=== PATIENT | male | born 1990 | race Two or more races ===

== ENCOUNTER 2025-02-10 18:03 | Inpatient (IN) | payer OTHER ==
[2025-02-10 19:51] LABS: COVID AG,FIA SOURCE NASAL SWAB
[2025-02-10 19:52] LABS: PLATELET COUNT (AUTO) 337 K/uL (150-450); RED BLOOD CELL COUNT(AUTO) 4.40 MIL/uL (4.50-5.90); RED CELL DISTRIBUTION WIDTH 15.2 % (11.5-14.5); WHITE BLOOD COUNT (AUTO) 9.1 K/uL (4.5-11.0)
[2025-02-10 19:55] LABS: APPEARANCE,URINE CLEAR (CLEAR); GLUCOSE, URINE (UA) NEGATIVE (NEGATIVE); LEUKOCYTE ESTERASE ,URINE NEGATIVE (NEGATIVE); NITRATE,URINE NEGATIVE (NEGATIVE); OCCULT BLOOD,URINE NEGATIVE (NEGATIVE); PH,URINE DRUG SCREEN 6.0 (5.0-8.0); SPECIFIC GRAVITIY, URINE 1.013 (1.003-1.030)
[2025-02-10 20:01] LABS: AMPHET/METH SCREEN,URINE NEGATIVE (NEGATIVE); BARBITURATE SCREEN, URINE NEGATIVE (NEGATIVE); CANNABINOID SCREEN,URINE NEGATIVE (NEGATIVE); COCAINE SCREEN,URINE NEGATIVE (NEGATIVE); METHADONE SCREEN, URINE NEGATIVE (NEGATIVE)
[2025-02-10 20:08] LABS: CALCIUM, TOTAL 8.7 mg/dL (8.8-10.5); CREATININE 0.78 mg/dL (0.60-1.30); GLOMERULAR FILTR. RATE CALC > 60 mL/min (>60); GLUCOSE,RANDOM 111 mg/dL (70-110); SODIUM SERUM 137 mmol/L (136-145); UREA NITROGEN, BLOOD 11 mg/dL (7-18)
[2025-02-10 20:11] LABS: SARS-COV2 (COVID) ANTIGEN,FIA Negative (Negative)
[2025-02-10 20:29] LABS: ALCOHOL, URINE DRUG SCREEN NEGATIVE (NEGATIVE)
[2025-02-10] MEDS ORDERED: PROMETHAZINE HCL 25 MG TABLET PO PRN (22:00)
[2025-02-10] MEDS ORDERED: MAGNESIUM HYDROXIDE SUSPENSION 30 ML UDCUP PO PRN (22:00)
[2025-02-10] MEDS ORDERED: MAG HYDROX/ALUMINUM HYD/SIMETH ES 30 ML SUSPENSION UDCUP PO PRN (22:00)
[2025-02-10] MEDS ORDERED: ALBUTEROL SULFATE 2.5 MG/0.5 ML NEB SOLUTION NEB PRN (22:00)
[2025-02-10] MEDS ORDERED: ACETAMINOPHEN 325 MG TABLET PO PRN ×2 (22:00)
[2025-02-10] MEDS ORDERED: LOPERAMIDE HCL 2 MG/15 ML SUSPENSION UDCUP PO PRN (22:00)
[2025-02-10] MEDS ORDERED: IPRATROPIUM BROMIDE 0.5 MG/2.5 ML NEB SOLUTION NEB PRN (22:00)
[2025-02-10] MEDS ORDERED: DICYCLOMINE HCL 10 MG CAPSULE PO PRN (22:00)
[2025-02-10] MEDS ORDERED: ONDANSETRON HCL 4 MG/2 ML VIAL IVP PRN (22:00)
[2025-02-10] MEDS ORDERED: BISACODYL 10 MG RECTAL RECTAL SUPPOSITORY PR PRN (22:00)
[2025-02-10] MEDS ORDERED: BACLOFEN 10 MG TABLET PO PRN (22:00)
[2025-02-10] MEDS: SODIUM CHLORIDE 0.45% 1,000 ML IV SCH (23:47)
[2025-02-10 23:50] VITALS: BP 105/62; PULSE 70; RESP 18; TEMP 97.5; O2SAT 100
[2025-02-11] MEDS: HEPARIN SODIUM,PORCINE 5,000 UNITS/ML VIAL SQ SCH
[2025-02-11 05:08] VITALS: BP 114/79; PULSE 67; RESP 18; TEMP 97.7; O2SAT 100
[2025-02-11] MEDS: PANTOPRAZOLE SODIUM 40 MG DR TABLET PO SCH (08:08)
[2025-02-11 09:14] VITALS: BP 108/67; PULSE 62; RESP 18; TEMP 98.2; O2SAT 99
[2025-02-11 20:58] VITALS: BP 112/56; PULSE 81; RESP 18; TEMP 98.8; O2SAT 97
[2025-02-11] MEDS: IBUPROFEN 600 MG TABLET PO PRN (22:38)
[2025-02-11] MEDS: ZOLPIDEM TARTRATE 5 MG TABLET PO PRN (22:38)
[2025-02-12 04:42] VITALS: BP 97/57; PULSE 58; RESP 18; TEMP 98.1; O2SAT 95
[2025-02-12 10:12] VITALS: BP 109/69; PULSE 70; RESP 18; TEMP 97.7; O2SAT 100
[2025-02-12 15:44] VITALS: BP 104/67; PULSE 82; RESP 18; TEMP 98.6; O2SAT 97
[2025-02-13 03:07] LABS: HEPATITIS C AB (EIA) Reactive (Non Reactive)
== END 2025-02-12 20:05 | DRG 897 ==
LOC: EDBD 18:03 → EMS 18:03 → EDH 21:51 → 6S 23:24
PROVIDERS: ADMIT Hospitalist; ATTEND Hospitalist
DX: F15.10 Other stimulant abuse, uncomplicated (principal); Z20.822 Contact with and (suspected) exposure to COVID-19; F41.9 Anxiety disorder, unspecified; Z88.0 Allergy status to penicillin
CPT/HCPCS: 80048; 80307; 81003; 85025; 86803; 87340; 99285; G0480; J1644